=== PATIENT | female | born 1965 | race Caucasian/White ===

== ENCOUNTER 2018-07-16 14:23 | Emergency (ER) | payer OTHER, BC ==
[~2018-07-16] VITALS: Ht 167.6 cm; Wt 82.7 kg
[2018-07-16 15:22] LABS: BASOPHILS # (AUTO) 0.03 x10^3/uL (0-0.1); BASOPHILS % (AUTO) 0 % (0-1); EOSINOPHILS # (AUTO) 0.21 x10^3/uL (0-0.4); EOSINOPHILS % (AUTO) 3 % (1-7); LYMPHOCYTES # (AUTO) 2.03 x10^3/uL (1-3.4); LYMPHOCYTES % (AUTO) 25 % (22-44); MD NO; MEAN CORPUSCULAR HEMOGLOBIN 29.9 pg (27.0-34.8); MEAN CORPUSCULAR HGB CONC 33.4 g/dL (32.4-35.8); MEAN CORPUSCULAR VOLUME 89.6 fL (80-100); MEAN PLATELET VOLUME 12.1 fL (7.4-10.4); MONOCYTES # (AUTO) 0.31 x10^3/uL (0.2-0.8); MONOCYTES % (AUTO) 4 % (2-9); NEUTROPHILS # (AUTO) 5.47 x10^3/uL (1.8-6.8); NEUTROPHILS % (AUTO) 68 % (42-75); PLATELET COUNT 204 x10^3/uL (130-400); RED BLOOD COUNT 4.74 x10^6/uL (3.82-5.3); RED CELL DISTRIBUTION WIDTH 12.9 % (9.6-15.2)
[2018-07-16 15:28] LABS: ALBUMIN 4.3 g/dL (3.4-5.0); ANION GAP 4 mmol/L (5-15); CHLORIDE 108 mmol/L (98-107); CREATININE 0.74 mg/dL (0.55-1.02)
[2018-07-16 15:32] LABS: TROPONIN I < 0.015 ng/mL (0.000-0.045)
--- NOTE | 2018-07-16 16:10 | NUR ---
ORCHARDIST: CALLED FOR ROOM, NO ANSWER
--- NOTE | 2018-07-16 16:28 | NUR ---
CAR RENTAL CLERK: PT TO ROOM FROM [facility]
--- NOTE | 2018-07-16 16:44 | NUR ---
PT REPORTS HUERTA AND GROIN PAIN SINCE YESTERDAY. PT STATED THAT SHE HAS POUNDING IN HER HEAD. PT IS ALERT, ORIENTED, WITH NAD. PT IS CONNECTED TO THE MONITOR. CALL LIGHT WITHIN REACH.
[2018-07-16] MEDS ORDERED: KETOROLAC 30 MG/1 ML ONE (17:24)
--- NOTE | 2018-07-16 17:28 | NUR ---
MD AT BEDSIDE. PT MEDICATED PER ORDER.
[2018-07-16] MEDS ORDERED: KETOROLAC 30 MG/1 ML IVPush ONE (17:30)
--- NOTE | 2018-07-16 17:37 | NUR ---
PT TAKEN TO CT.
[2018-07-16 17:48] LABS: INTERNATIONAL NORMALIZED RATIO 0.99 (0.93-1.1); PROTHROMBIN TIME 10.4 Seconds (9.6-11.5)
[2018-07-16] MEDS ORDERED: OMNIPAQUE 350 MG/ML, 100ML BOTTLE ONE (17:57)
[2018-07-16 18:39] VITALS: BP 148/79
--- NOTE | 2018-07-16 18:41 | NUR ---
INFORMED PA THAT PT IS REQUESTING SOMETHING MORE FOR PAIN.
[2018-07-16] MEDS ORDERED: MORPHINE SULFATE 4 MG/ML, 1ML ONE (18:46)
[2018-07-16 18:51] LABS: CLUE CELLS NONE SEEN (NONE SEEN); WET PREP WBCS NONE SEEN (FEW)
--- NOTE | 2018-07-16 18:51 | NUR ---
PT MEDICATED PER ORDER.
--- NOTE | 2018-07-16 18:56 | NUR ---
PA AT BEDSIDE.
--- NOTE | 2018-07-16 18:57 | NUR ---
REPORT GIVEN TO KARENA TOMLIN.
[2018-07-16] MEDS ORDERED: morphine SULFATE 10 MG/ML, 1ML IVPush ONE (19:00)
--- NOTE | 2018-07-16 19:41 | NUR ---
Pt verbalized understanding of DC instructions, ambulated without assistance, reports eager for discharge, attempting to take tegaderm off IV, pt encouraged to wait for RN to take her IV out. Pt dc'd home with .
== END 2018-07-16 19:45 | disposition home or self-care (01) ==
LOC: ED 19:39
DX: S76.212A Strain of adductor muscle, fascia and tendon of left thigh, initial encounter (principal); X58.XXXA Exposure to other specified factors, initial encounter; Y93.89 Activity, other specified; Y92.89 Other specified places as the place of occurrence of the external cause; Y99.8 Other external cause status
CPT/HCPCS: 36415; 71046; 72193; 80048; 82040; 84484; 85025; 85610; 85730; 87210; 87491; 87591; 87808; 93005; 96374; 96375; 99284; J1885; J2270; Q9967

== ENCOUNTER 2018-08-19 15:16 | Emergency (ER) | payer OTHER, BC ==
[~2018-08-19] VITALS: Ht 167.6 cm; Wt 83.8 kg
[2018-08-19 16:58] LABS: BASOPHILS # (AUTO) 0.04 x10^3/uL (0-0.1); BASOPHILS % (AUTO) 1 % (0-1); EOSINOPHILS # (AUTO) 0.17 x10^3/uL (0-0.4); EOSINOPHILS % (AUTO) 3 % (1-7); LYMPHOCYTES # (AUTO) 2.16 x10^3/uL (1-3.4); LYMPHOCYTES % (AUTO) 33 % (22-44); MD NO; MEAN CORPUSCULAR HGB CONC 33.4 g/dL (32.4-35.8); MEAN CORPUSCULAR VOLUME 89.9 fL (80-100); MONOCYTES % (AUTO) 5 % (2-9); NEUTROPHILS % (AUTO) 59 % (42-75); PLATELET COUNT 201 x10^3/uL (130-400); RED BLOOD COUNT 4.67 x10^6/uL (3.82-5.3); RED CELL DISTRIBUTION WIDTH 13.5 % (9.6-15.2)
[2018-08-19 17:04] LABS: ALBUMIN 4.3 g/dL (3.4-5.0); ANION GAP 4 mmol/L (5-15); CALCIUM 8.7 mg/dL (8.5-10.1); CHLORIDE 111 mmol/L (98-107)
[2018-08-19 17:09] LABS: ALANINE AMINOTRANSFERASE 23 U/L (12-78); ALKALINE PHOSPHATASE 54 U/L (45-117); BILIRUBIN,TOTAL 0.3 mg/dL (0.2-1.0); CREATININE 0.77 mg/dL (0.55-1.02); TOTAL PROTEIN 7.5 g/dL (6.4-8.2)
--- NOTE | 2018-08-19 17:24 | NUR ---
LATE NOTE AILYN FOR 1700: FIRST CONTACT WITH PT. Pt resting on MARGARETH estrada. Pt states, "I have severe groin pain (right groin) that started a few days ago. I have had a hernia, a femoral hernia before." Call light within reach.
--- NOTE | 2018-08-19 17:34 | NUR ---
Pt ambulates to restroom with ED RN SBA for urine sample.
[2018-08-19 17:51] LABS: MICROSCOPIC NOT IND
[2018-08-19 17:58] LABS: CULTURE INDICATED? NO
[2018-08-19] MEDS ORDERED: KETOROLAC 30 MG/1 ML ONE (18:18)
[2018-08-19] MEDS ORDERED: KETOROLAC 30 MG/1 ML IVPush ONE (18:30)
--- NOTE | 2018-08-19 18:58 | NUR ---
Attempted two times for PIV placement. Pt pulled arm away both times when attempting to place PIV. Pt states, "I can't tolerate the pain." Pt offered CT without contrast by EDMD and pain medication PO. Pt refuses. Pt states, "I want it through the IV and I want the contrast to show what is going on." ED MD aware.
--- NOTE | 2018-08-19 19:17 | NUR ---
Provided report to NABOR Ayobu. All questions answered. NABOR Ayoub to assume care of pt.
[2018-08-19 19:22] VITALS: BP 147/67
[2018-08-19] MEDS ORDERED: MORPHINE SULFATE 4 MG/ML, 1ML IVPush ONE ×2 (19:30→21:00)
[2018-08-19] MEDS ORDERED: ONDANSETRON 2MG/ML, 2ML IVPush ONE (19:30)
--- NOTE | 2018-08-19 20:04 | NUR ---
PT TAKEN TO RESTROOM.
[2018-08-19] MEDS ORDERED: MORPHINE SULFATE 4 MG/ML, 1ML ONE ×2 (20:07→20:37)
[2018-08-19] MEDS ORDERED: ONDANSETRON 2MG/ML, 2ML ONE (20:07)
--- NOTE | 2018-08-19 20:10 | NUR ---
PT MEDICATED FOR PAIN, PT TO CT AT THIS TIME.
[2018-08-19] MEDS ORDERED: OMNIPAQUE 350 MG/ML, 100ML BOTTLE ONE (20:32)
--- NOTE | 2018-08-19 20:39 | NUR ---
REPEAPT DOSE OF PAIN MEDICATIONS FOR PAIN CONTROL.
--- NOTE | 2018-08-19 21:16 | NUR ---
Patient/Caregiver given discharge instructions and they have confirmed that they understand the instructions. Patient ambulatory with steady gait.
== END 2018-08-19 21:42 | disposition home or self-care (01) ==
LOC: ED 21:36
DX: R10.31 Right lower quadrant pain (principal); G43.909 Migraine, unspecified, not intractable, without status migrainosus
CPT/HCPCS: 36415; 74021; 74177; 80053; 81003; 83690; 85025; 96374; 96375; 96376; 99284; J1885; J2405; Q9967

== ENCOUNTER 2018-11-18 07:14 | Inpatient (IN) | payer OTHER, BC ==
[~2018-11-18] VITALS: Ht 167.6 cm; Wt 89.6 kg
[2018-11-19 20:16] VITALS: BP 119/82
== END 2018-11-19 20:25 | disposition home or self-care (01) | DRG 352 ==
LOC: OUT 07:14 → 4NOR 12:27 → OUT 23:01 → UNDODISIN 11-19 18:45
PROVIDERS: ADMIT Surgery; ATTEND Surgery
PROC: 0YU54JZ Supplement Right Inguinal Region with Synthetic Substitute, Percutaneous Endoscopic Approach (ICD-10-PCS; principal; 2018-11-18)
PROC: 8E0W4CZ Robotic Assisted Procedure of Trunk Region, Percutaneous Endoscopic Approach (ICD-10-PCS; 2018-11-18)
PROC: 06Q Lower Veins, Repair (ICD-10-PCS; 2018-11-18)
DX: K43.9 Ventral hernia without obstruction or gangrene (principal); K41.90 Unilateral femoral hernia, without obstruction or gangrene, not specified as recurrent; K40.91 Unilateral inguinal hernia, without obstruction or gangrene, recurrent; G89.29 Other chronic pain; D17.9 Benign lipomatous neoplasm, unspecified; Z90.710 Acquired absence of both cervix and uterus; Z88.8 Allergy status to other drugs, medicaments and biological substances; Z83.3 Family history of diabetes mellitus; Z82.49 Family history of ischemic heart disease and other diseases of the circulatory system; Z90.49 Acquired absence of other specified parts of digestive tract
CPT/HCPCS: 36415; S0020; 85025; 86850; 86900; G0378; J0171; J0690; J1100; J1650; J1885; J2250; J2405; J2704; J2710; J3010; J3360; C1760; C1781; J0330; J7120

== ENCOUNTER → 2018-11-23 | Outpatient (CLI) | payer OTHER, BC ==
[~2018-11-23] MED LIST: APIX5TAB PO; ESTR1TAB15 PO; FAMO-79 PO; LINA290C PO; MIRA25TA PO; PENT100C2 PO; SUCR1TAB PO; TOPI50TA35 PO
== END | disposition home or self-care (01) ==
LOC: CFH 15:39
PROVIDERS: ATTEND Surgery
DX: R10.13 Epigastric pain (principal)
CPT/HCPCS: 93975

== ENCOUNTER 2018-12-19 20:05 | Emergency (ER) | payer OTHER, BC ==
[~2018-12-19] VITALS: Ht 167.6 cm; Wt 84.5 kg
[2018-12-19 23:36] VITALS: BP 133/68
== END 2018-12-19 23:39 | disposition home or self-care (01) ==
LOC: ED 20:28
DX: R10.31 Right lower quadrant pain (principal); Z90.49 Acquired absence of other specified parts of digestive tract; Z90.710 Acquired absence of both cervix and uterus; Z98.890 Other specified postprocedural states
CPT/HCPCS: 36415; 80053; 83690; 85025; 93971; 96374; 96375; 99284; J2270; J2405

== ENCOUNTER 2019-04-08 10:20 | Emergency (ER) | payer OTHER, BC ==
[~2019-04-08] VITALS: Ht 167.6 cm; Wt 82.0 kg
[2019-04-08] MEDS ORDERED: SODIUM CHLORIDE FLUSH 10ML SYR IVF ONE (11:00)
[2019-04-08] MEDS ORDERED: MORPHINE SULFATE 4 MG/ML, 1ML IVPush PRN (11:00)
[2019-04-08] MEDS ORDERED: ONDANSETRON 2MG/ML, 2ML IVPush ONE (11:00)
[2019-04-08] MEDS ORDERED: ONDANSETRON 2MG/ML, 2ML ONE (11:12)
[2019-04-08] MEDS ORDERED: MORPHINE SULFATE 4 MG/ML, 1ML ONE (11:13)
[2019-04-08 11:22] LABS: BASOPHILS # (AUTO) 0.04 x10^3/uL (0-0.1); BASOPHILS % (AUTO) 1 % (0-1); EOSINOPHILS # (AUTO) 0.23 x10^3/uL (0-0.4); EOSINOPHILS % (AUTO) 4 % (1-7); LYMPHOCYTES # (AUTO) 1.78 x10^3/uL (1-3.4); LYMPHOCYTES % (AUTO) 30 % (22-44); MD NO; MEAN CORPUSCULAR HEMOGLOBIN 30.3 pg (27.0-34.8); MEAN CORPUSCULAR HGB CONC 32.7 g/dL (32.4-35.8); MEAN CORPUSCULAR VOLUME 92.8 fL (80-100); MEAN PLATELET VOLUME 10.2 fL (7.4-10.4); MONOCYTES # (AUTO) 0.27 x10^3/uL (0.2-0.8); MONOCYTES % (AUTO) 5 % (2-9); NEUTROPHILS # (AUTO) 3.57 x10^3/uL (1.8-6.8); NEUTROPHILS % (AUTO) 61 % (42-75); PLATELET COUNT 214 x10^3/uL (130-400); RED BLOOD COUNT 4.82 x10^6/uL (3.82-5.3); RED CELL DISTRIBUTION WIDTH 13.1 % (9.6-15.2)
[2019-04-08 11:29] LABS: ALANINE AMINOTRANSFERASE 26 U/L (12-78); ANION GAP 6 mmol/L (5-15); CALCIUM 8.5 mg/dL (8.5-10.1); CHLORIDE 113 mmol/L (98-107); CREATININE 0.61 mg/dL (0.55-1.02)
[2019-04-08 11:31] LABS: ALKALINE PHOSPHATASE 63 U/L (45-117); BILIRUBIN,TOTAL 0.2 mg/dL (0.2-1.0); TOTAL PROTEIN 7.6 g/dL (6.4-8.2)
--- NOTE | 2019-04-08 11:31 | NUR ---
IV PLACED, LABS DRAWN W[facility] START. MEDS GIVEN PER ERP ORDER FOR 8/10 RUQ PAIN AND NAUSEA. URINE COLLECTED/SENT TO LAB. WARM BLANKET PROVIDED, CALL LIGHT WITHIN REACH.
--- NOTE | 2019-04-08 11:35 | NUR ---
PT TO CT.
[2019-04-08] MEDS ORDERED: OMNIPAQUE 350 MG/ML, 100ML BOTTLE ONE (11:52)
--- NOTE | 2019-04-08 12:13 | NUR ---
PT BACK FROM CT. PT STATES PAIN IS "25% BETTER" AT THIS TIME BUT DOES NOT WANT ANY MORE MORPHINE. AWAITING UA RESULTS.
[2019-04-08 12:29] LABS: CULTURE INDICATED? NO; MICROSCOPIC NOT IND
--- NOTE | 2019-04-08 12:36 | NUR ---
ALL RESULTS BACK, PT FOR RECHECK.
[2019-04-08 13:17] VITALS: BP 142/76
== END 2019-04-08 13:19 | disposition home or self-care (01) ==
LOC: ED 11:53
DX: I88.0 Nonspecific mesenteric lymphadenitis (principal); K59.00 Constipation, unspecified
CPT/HCPCS: 36415; 74177; 80053; 81003; 83690; 85025; 96374; 96375; 99284; J2270; J2405; Q9967

== ENCOUNTER 2019-10-18 16:19 | Emergency (ER) | payer OTHER, BC ==
[~2019-10-18] VITALS: Ht 167.6 cm; Wt 82.3 kg
--- NOTE | 2019-10-18 16:55 | NUR ---
PT PRESENTING TO ER FOR URINARY PAIN/FREQUENCY AND FOUL SMELL SINCE FRIDAY. SEEN YESTERDAY, GIVEN IV ABX WAS TOLD WAS GOING TO FEEL BETTER TODAY BUT FEELS WORSE. PT TEARFUL AND GUARDING OF AREA. IV PLACED, LABS DRAWN. AWAITING MD ASSESSMENT AND FURTHER ORDERS AT THIS TIME. CALL LIGHT WITHIN REACH. BLANKET PROVIDED FOR COMFORT
[2019-10-18] MEDS ORDERED: SODIUM CHLORIDE 0.9% 1,000 ML IV ONE (17:16)
[2019-10-18] MEDS ORDERED: PHENAZOPYRIDINE 200 MG TABLET ONE (17:17)
[2019-10-18] MEDS ORDERED: HYDROmorphone 2 MG/ML, 1ML ONE (17:17)
[2019-10-18] MEDS ORDERED: ONDANSETRON 2MG/ML, 2ML ONE (17:17)
[2019-10-18] MEDS ORDERED: ONDANSETRON 2MG/ML, 2ML IVPush ONE (17:30)
[2019-10-18] MEDS ORDERED: SODIUM CHLORIDE 0.9% 1,000ML IVBOLUS ONE (17:30)
[2019-10-18] MEDS ORDERED: SODIUM CHLORIDE FLUSH 10ML SYR IVF ONE (17:30)
[2019-10-18] MEDS ORDERED: MORPHINE SULFATE 4 MG/ML, 1ML IVPush PRN (17:30)
--- NOTE | 2019-10-18 17:43 | NUR ---
PT MEDICATED PER JUL. FLUIDS RUNNING. STS CANNOT VOID AT THIS TIME, WILL CHECK BACK SOON. TAKEN TO CT.
[2019-10-18] MEDS ORDERED: HYDROmorphone 1 MG/ML, 1ML INJ IVPush PRN (18:00)
[2019-10-18] MEDS ORDERED: HYDROmorphone 2 MG/ML, 1ML IVPush PRN (18:00)
--- NOTE | 2019-10-18 18:14 | NUR ---
PT UP TO RESTROOM AT THIS TIME FOR URINE SAMPLE COLLECTION.
[2019-10-18 18:16] LABS: ALBUMIN 3.6 g/dL (3.4-5.0); ANION GAP 6 mmol/L (5-15); CALCIUM 7.9 mg/dL (8.5-10.1); CHLORIDE 115 mmol/L (98-107); CREATININE 0.83 mg/dL (0.55-1.02)
[2019-10-18 18:20] LABS: BASOPHILS # (AUTO) 0.04 x10^3/uL (0-0.1); BASOPHILS % (AUTO) 1 % (0-1); EOSINOPHILS # (AUTO) 0.15 x10^3/uL (0-0.4); EOSINOPHILS % (AUTO) 2 % (1-7); LYMPHOCYTES % (AUTO) 26 % (22-44); MD NO; MEAN CORPUSCULAR HEMOGLOBIN 30.2 pg (27.0-34.8); MEAN CORPUSCULAR HGB CONC 32.9 g/dL (32.4-35.8); MEAN CORPUSCULAR VOLUME 91.8 fL (80-100); MEAN PLATELET VOLUME 13.3 fL (7.4-10.4); MONOCYTES % (AUTO) 5 % (2-9); NEUTROPHILS # (AUTO) 4.38 x10^3/uL (1.8-6.8); NEUTROPHILS % (AUTO) 67 % (42-75); PLATELET COUNT 172 x10^3/uL (130-400); RED BLOOD COUNT 4.53 x10^6/uL (3.82-5.3); RED CELL DISTRIBUTION WIDTH 13.1 % (9.6-15.2)
[2019-10-18 18:33] LABS: MICROSCOPIC AUTO
--- NOTE | 2019-10-18 18:48 | NUR ---
ALL RESULTS BACK AT THIS TIME, CHART UP FOR RECHECK
[2019-10-18 19:17] VITALS: BP 132/79
--- NOTE | 2019-10-18 19:17 | NUR ---
MD TO BEDSIDE FOR RECHECK AND TO UPDATE PT ON POC
== END 2019-10-18 19:41 | disposition home or self-care (01) ==
LOC: ED 19:30
DX: N30.00 Acute cystitis without hematuria (principal); Z90.49 Acquired absence of other specified parts of digestive tract; Z90.710 Acquired absence of both cervix and uterus
CPT/HCPCS: 36415; 74176; 80048; 81001; 82040; 83605; 85025; 87040; 87086; 96374; 96375; 99284; J1170; J2405; J7030

== ENCOUNTER 2019-10-30 16:09 | Emergency (ER) | payer OTHER, BC ==
[~2019-10-30] VITALS: Ht 167.6 cm; Wt 83.0 kg
[2019-10-30] MEDS ORDERED: HYDROmorphone 1 MG/ML, 1ML INJ IV ONE ×2 (16:30→19:00)
[2019-10-30] MEDS ORDERED: SODIUM CHLORIDE FLUSH 10ML SYR IVF ONE (16:30)
[2019-10-30] MEDS ORDERED: HYDROmorphone 1 MG/ML, 1ML INJ ONE ×2 (17:12→18:48)
[2019-10-30 17:23] LABS: HCT (SEDRATE) 37.7 % (34.6-47.8)
[2019-10-30 17:27] LABS: ALANINE AMINOTRANSFERASE 21 U/L (12-78); ALBUMIN 3.9 g/dL (3.4-5.0); ANION GAP 6 mmol/L (5-15); CALCIUM 8.5 mg/dL (8.5-10.1); CHLORIDE 113 mmol/L (98-107)
[2019-10-30 17:29] LABS: ALKALINE PHOSPHATASE 59 U/L (45-117); BILIRUBIN,TOTAL 0.3 mg/dL (0.2-1.0); CREATININE 0.98 mg/dL (0.55-1.02); TOTAL PROTEIN 6.9 g/dL (6.4-8.2)
[2019-10-30 17:40] LABS: BASOPHILS # (AUTO) 0.09 x10^3/uL (0-0.1); BASOPHILS % (AUTO) 1 % (0-1); EOSINOPHILS # (AUTO) 0.11 x10^3/uL (0-0.4); EOSINOPHILS % (AUTO) 2 % (1-7); LYMPHOCYTES # (AUTO) 1.86 x10^3/uL (1-3.4); LYMPHOCYTES % (AUTO) 27 % (22-44); MD SCAN; MEAN CORPUSCULAR HEMOGLOBIN 30.4 pg (27.0-34.8); MEAN CORPUSCULAR VOLUME 92.2 fL (80-100); MEAN PLATELET VOLUME 11.8 fL (7.4-10.4); MONOCYTES # (AUTO) 0.42 x10^3/uL (0.2-0.8); MONOCYTES % (AUTO) 6 % (2-9); NEUTROPHILS # (AUTO) 4.52 x10^3/uL (1.8-6.8); NEUTROPHILS % (AUTO) 65 % (42-75); PLATELET COUNT 168 x10^3/uL (130-400); RED BLOOD COUNT 4.16 x10^6/uL (3.82-5.3); RED CELL DISTRIBUTION WIDTH 13.6 % (9.6-15.2)
--- NOTE | 2019-10-30 18:55 | NUR ---
REPORT RECIEVED FROM NABOR PORTER.
--- NOTE | 2019-10-30 19:00 | NUR ---
PATIENT TAKEN TO MRI WITH GRADUATE STUDENT INSTRUCTOR VIA GÓMEZ
[2019-10-30] MEDS ORDERED: GADOTERATE 10 MMOL/20 ML SYR ONE (19:46)
--- NOTE | 2019-10-30 20:49 | NUR ---
PROVIDER AT BEDSIDE WITH PATIENT.
[2019-10-30] MEDS ORDERED: KETOROLAC 30 MG/1 ML IV ONE (21:00)
[2019-10-30] MEDS ORDERED: KETOROLAC 30 MG/1 ML ONE (21:12)
[2019-10-30 21:58] VITALS: BP 144/79
== END 2019-10-30 22:01 | disposition home or self-care (01) ==
LOC: ED 17:32
DX: M25.512 Pain in left shoulder (principal); G89.29 Other chronic pain; Z90.49 Acquired absence of other specified parts of digestive tract; Z90.710 Acquired absence of both cervix and uterus
CPT/HCPCS: 36415; 73223; 80053; 85025; 85651; 86140; 96374; 96375; 96376; 99285; A9575; J1170; J1885

== ENCOUNTER 2020-03-22 19:18 | Emergency (ER) | payer OTHER, BC ==
[~2020-03-22] VITALS: Ht 167.6 cm; Wt 81.1 kg
--- NOTE | 2020-03-22 19:28 | NUR ---
CREDIT NEGOTIATOR: EKG PERFORMED IN TRIAGE.
[2020-03-22 20:30] LABS: MICROSCOPIC NOT IND
[2020-03-22 20:51] LABS: BASOPHILS % (AUTO) 1 % (0-1); EOSINOPHILS % (AUTO) 10 % (1-7); LYMPHOCYTES % (AUTO) 30 % (22-44); MEAN CORPUSCULAR HEMOGLOBIN 29.4 pg (27.0-34.8); MEAN CORPUSCULAR HGB CONC 32.4 g/dL (32.4-35.8); MEAN PLATELET VOLUME 10.4 fL (7.4-10.4); MONOCYTES % (AUTO) 5 % (2-9); NEUTROPHILS % (AUTO) 55 % (42-75); PLATELET COUNT 185 x10^3/uL (130-400); RED BLOOD COUNT 4.87 x10^6/uL (3.82-5.3); RED CELL DISTRIBUTION WIDTH 13.5 % (9.6-15.2)
[2020-03-22 20:54] LABS: MD NO
[2020-03-22 21:04] LABS: ANION GAP 7 mmol/L (5-15); CHLORIDE 109 mmol/L (98-107)
[2020-03-22 21:05] LABS: ALANINE AMINOTRANSFERASE 24 U/L (12-78); ALKALINE PHOSPHATASE 61 U/L (45-117); BILIRUBIN,TOTAL 0.3 mg/dL (0.2-1.0); CREATININE 0.71 mg/dL (0.55-1.02); TOTAL PROTEIN 7.1 g/dL (6.4-8.2)
[2020-03-22] MEDS ORDERED: MAALOX/HYOSCYAMINE/LIDOCAINE 45 ML BTL ONE (21:15)
[2020-03-22] MEDS ORDERED: ONDANSETRON 2MG/ML, 2ML ONE (21:15)
[2020-03-22] MEDS ORDERED: KETOROLAC 30 MG/1 ML ONE (21:15)
[2020-03-22] MEDS ORDERED: KETOROLAC 30 MG/1 ML IVPush ONE (21:30)
[2020-03-22] MEDS ORDERED: SODIUM CHLORIDE FLUSH 10ML SYR IVF ONE (21:30)
[2020-03-22] MEDS ORDERED: ONDANSETRON 2MG/ML, 2ML IVPush ONE (21:30)
[2020-03-22] MEDS ORDERED: MAALOX/HYOSCYAMINE/LIDOCAINE 45 ML BTL PO ONE (21:30)
--- NOTE | 2020-03-22 21:42 | NUR ---
Patient was complaint about IV in left AC hurting and bothering her. Noted to have good blood return and flush. IV removed for patients comfort. Informed patient that if something comes back on the CT scan that we may need to place another IV
[2020-03-22 22:30] VITALS: BP 155/68
== END 2020-03-22 22:32 | disposition home or self-care (01) ==
LOC: ED 22:00
DX: R10.31 Right lower quadrant pain (principal); R10.11 Right upper quadrant pain; R42 Dizziness and giddiness; R94.31 Abnormal electrocardiogram [ECG] [EKG]; G43.909 Migraine, unspecified, not intractable, without status migrainosus; Z90.89 Acquired absence of other organs; Z90.49 Acquired absence of other specified parts of digestive tract; Z90.710 Acquired absence of both cervix and uterus
CPT/HCPCS: 36415; 74176; 80053; 81003; 83690; 85025; 93005; 96374; 96375; 99285; J1885; J2405

== ENCOUNTER 2020-06-14 05:15 | Day surgery (SDC) | payer OTHER, BC ==
[~2020-06-14] VITALS: Ht 167.6 cm; Wt 77.5 kg
[2020-06-14] MEDS ORDERED: BUPIVACAINE/PF 0.25% ONE (06:05)
[2020-06-14] MEDS ORDERED: EPINEPHRINE 1 MG/ML, 1ML ONE (06:05)
[2020-06-14] MEDS ORDERED: OXYB5TAB10 PO (06:05)
[2020-06-14] MEDS ORDERED: OXYC-302 PO (06:07)
[2020-06-14 06:09] VITALS: BP 131/83
[2020-06-14] MEDS ORDERED: FENTANYL PF 250 MCG/5ML ONE (06:09)
[2020-06-14] MEDS ORDERED: MIDAZOLAM 1 MG/ML, 2ML ONE (06:09)
[2020-06-14] MEDS ORDERED: CHLORHEXIDINE 15 ML UDC ONE (06:15)
[2020-06-14] MEDS ORDERED: ACETAMINOPHEN 500 MG TABLET ONE ×2 (06:27)
[2020-06-14] MEDS ORDERED: CHLORHEXIDINE 15 ML UDC MM ONE (06:30)
[2020-06-14] MEDS ORDERED: LACTATED RINGERS 1,000 ML IV SCH (06:30)
[2020-06-14] MEDS ORDERED: CEFAZOLIN 1,000 MG ONE (07:37)
[2020-06-14] MEDS ORDERED: NEOSTIGMINE 1 MG/ML, 10ML ONE (07:37)
[2020-06-14] MEDS ORDERED: PROPOFOL 10 MG/ML, 20ML ONE (07:37)
[2020-06-14] MEDS ORDERED: ROCURONIUM 10MG/ML,5ML ONE (07:37)
[2020-06-14] MEDS ORDERED: GLYCOPYRROLATE 0.2MG/1ML, 5ML ONE (07:37)
[2020-06-14] MEDS ORDERED: DEXAMETHASONE 4 MG/ML, 1ML ONE (07:37)
[2020-06-14] MEDS ORDERED: ONDANSETRON 2MG/ML, 2ML ONE (07:37)
[2020-06-14] MEDS ORDERED: SUCCINYLCHOLINE 20 MG/ML, 10ML ONE (07:37)
[2020-06-14] MEDS ORDERED: ROPIvacaine/PF 0.5%, 30 ML ONE (07:37)
[2020-06-14] MEDS ORDERED: HYDROmorphone 2 MG/ML, 1ML IVPush PRN (08:00)
[2020-06-14] MEDS ORDERED: DIAZEPAM 5 MG/ML, 2ML IVPush PRN (08:00)
[2020-06-14] MEDS ORDERED: PROMETHAZINE 25 MG/ML, 1ML IV PRN (08:00)
[2020-06-14] MEDS ORDERED: ALBUTEROL SULFATE 2.5 MG/3 ML NPPB PRN (08:00)
[2020-06-14] MEDS ORDERED: OXYcodone 5 MG/5 ML ORAL.SOL UDC PO PRN (08:00)
[2020-06-14] MEDS ORDERED: hydrALAzine 20 MG/ML, 1ML IV PRN (08:00)
[2020-06-14] MEDS ORDERED: ACETAMINOPHEN 325 MG TABLET PO PRN (08:00)
[2020-06-14] MEDS ORDERED: LABETALOL 5MG/ML, 20ML IV PRN (08:00)
[2020-06-14] MEDS ORDERED: KETOROLAC 30 MG/1 ML IV PRN (08:00)
[2020-06-14] MEDS ORDERED: MEPERIDINE/PF 25MG/0.5ML IVPush PRN (08:00)
[2020-06-14] MEDS ORDERED: FENTANYL PF 100 MCG/2ML ONE (08:37)
[2020-06-14] MEDS: FENTANYL PF 100 MCG/2ML IV PRN ×2 (08:39→09:09)
[2020-06-14] MEDS ORDERED: KETOROLAC 30 MG/1 ML ONE (08:47)
[2020-06-14] MEDS ORDERED: ACETAMINOPHEN 650 MG/20.3 ML UDC ONE (08:51)
[2020-06-14] MEDS ORDERED: OXYcodone 5 MG/5 ML ORAL.SOL UDC ONE (08:51)
[2020-06-14] MEDS ORDERED: DIPHENHYDRAMINE 50 MG/ML, 1ML ONE (09:19)
[2020-06-14] MEDS ORDERED: DIPHENHYDRAMINE 50 MG/ML, 1ML IVPush ONE (09:30)
== END 2020-06-14 11:15 | disposition home or self-care (01) ==
LOC: OUT 05:15
PROVIDERS: ATTEND Orthopaedic Surgery
DX: S46.012A Strain of muscle(s) and tendon(s) of the rotator cuff of left shoulder, initial encounter (principal); S43.432A Superior glenoid labrum lesion of left shoulder, initial encounter; M19.012 Primary osteoarthritis, left shoulder; M75.02 Adhesive capsulitis of left shoulder; M94.212 Chondromalacia, left shoulder; G89.18 Other acute postprocedural pain; Z20.822 Contact with and (suspected) exposure to COVID-19; G43.909 Migraine, unspecified, not intractable, without status migrainosus; Z79.899 Other long term (current) drug therapy; Z88.8 Allergy status to other drugs, medicaments and biological substances; Z82.49 Family history of ischemic heart disease and other diseases of the circulatory system; X58.XXXA Exposure to other specified factors, initial encounter; Y93.89 Activity, other specified; Y92.89 Other specified places as the place of occurrence of the external cause; Y99.8 Other external cause status
CPT/HCPCS: 29823; 29824; 29826; 64415; J0171; J0690; J1100; J1200; J1885; J2250; J2405; J2704; J2710; J2795; J3010; J7120; U0003; J0330

== ENCOUNTER 2020-10-09 14:07 | Emergency (ER) | payer OTHER, BC ==
[~2020-10-09] VITALS: Ht 167.6 cm; Wt 79.2 kg
[~2020-10-09 14:07] MED LIST changes: +OXYB5TAB10 PO; +OXYC-302 PO
[2020-10-09 15:37] LABS: BASOPHILS % (AUTO) 1 % (0-1); EOSINOPHILS % (AUTO) 4 % (1-7); LYMPHOCYTES % (AUTO) 36 % (22-44); MEAN CORPUSCULAR HEMOGLOBIN 30.3 pg (27.0-34.8); MEAN PLATELET VOLUME 10.8 fL (7.4-10.4); MONOCYTES % (AUTO) 6 % (2-9); NEUTROPHILS % (AUTO) 54 % (42-75); PLATELET COUNT 174 x10^3/uL (130-400); RED BLOOD COUNT 4.45 x10^6/uL (3.82-5.3); RED CELL DISTRIBUTION WIDTH 12.9 % (9.6-15.2)
--- NOTE | 2020-10-09 15:40 | NUR ---
air conditioning service technician reassessing VS and results reported to weight reduction specialist while awaiting ED room assignment.
[2020-10-09 15:41] LABS: ALANINE AMINOTRANSFERASE 23 U/L (12-78); ALBUMIN 3.9 g/dL (3.4-5.0); ANION GAP 6 mmol/L (5-15); CALCIUM 8.6 mg/dL (8.5-10.1); CHLORIDE 110 mmol/L (98-107); CREATININE 0.75 mg/dL (0.55-1.02)
[2020-10-09 15:43] LABS: ALKALINE PHOSPHATASE 53 U/L (45-117); BILIRUBIN,TOTAL 0.3 mg/dL (0.2-1.0)
[2020-10-09] MEDS ORDERED: KETOROLAC 60 MG/2 ML ONE (16:14)
[2020-10-09] MEDS ORDERED: KETOROLAC 30 MG/1 ML IM ONE (16:30)
[2020-10-09] MEDS ORDERED: SODIUM CHLORIDE FLUSH 10ML SYR IVF ONE (17:00)
[2020-10-09] MEDS ORDERED: HYDROmorphone 1 MG/ML, 1ML INJ IV ONE (17:00)
[2020-10-09] MEDS ORDERED: ONDANSETRON 2MG/ML, 2ML IVPush ONE (17:00)
[2020-10-09] MEDS ORDERED: SODIUM CHLORIDE 0.9% 1,000ML IVBOLUS ONE (17:00)
[2020-10-09 17:05] LABS: MICROSCOPIC AUTO
[2020-10-09] MEDS ORDERED: ONDANSETRON 2MG/ML, 2ML ONE (17:08)
[2020-10-09] MEDS ORDERED: HYDROmorphone 1 MG/ML, 1ML INJ ONE (17:08)
[2020-10-09] MEDS ORDERED: CEFTRIAXONE 1,000 MG in DEXTROSE 5% 50 ML IVPB ONE (18:00)
[2020-10-09 18:18] VITALS: BP 156/98
--- NOTE | 2020-10-09 18:19 | NUR ---
BREAK RN: INFUSING COMPLETED,
== END 2020-10-09 18:41 | disposition home or self-care (01) ==
LOC: ED 17:03
DX: N30.00 Acute cystitis without hematuria (principal); R10.30 Lower abdominal pain, unspecified; Z90.49 Acquired absence of other specified parts of digestive tract; Z90.710 Acquired absence of both cervix and uterus
CPT/HCPCS: 36415; 80053; 81001; 85025; 87086; 96361; 96365; 96375; 99284; J0696; J1170; J2405; J7030